=== PATIENT | male | born 1985 | race Caucasian/White ===

== ENCOUNTER 2017-03-31 10:02 | Emergency (ER) | payer BC ==
[~2017-03-31] VITALS: Ht 167.6 cm; Wt 71.2 kg
[2017-03-31 10:02] VITALS: BP 116/65
--- NOTE | 2017-03-31 10:25 | NUR ---
PATIENT FREAKED OUT AT BEDSIDE AFTER HE LEARNED THAT HE IS GOING TO PAY HIS CO-PAY. PATIENT STATES THAT HE DOESN'T WANT TO PAY HIS CO-PAY OF $325 FOR BLOOD TEST ON URGENT CARE. PATIENT WAS TOLD THAT THIS IS AN EMERGENCY ROOM AND NOT AN URGENT CARE.
[2017-03-31] MEDS ORDERED: ONDANSETRON HCL/PF 4 MG/2 ML VIAL IVP ONE (10:30)
[2017-03-31] MEDS ORDERED: IV NS 0.9% 1,000 ML BAG IV ONE (10:30)
--- NOTE | 2017-03-31 10:35 | NUR ---
Patient eloped from facility. ER MD notified.
== END 2017-03-31 10:36 | disposition left against medical advice (07) ==
LOC: ER 10:10
DX: Z53.21 Procedure and treatment not carried out due to patient leaving prior to being seen by health care provider (principal)
CPT/HCPCS: A4606; Z7610